=== PATIENT | female | born 1940 | race Caucasian/White ===

== ENCOUNTER 2019-12-12 16:06 | Emergency (ER) | payer MEDICARE, SELFPAY ==
[2019-12-12 16:10] VITALS: BP 169/81; PULSE 76; RESP 24; TEMP 37.4; O2SAT 99
--- NOTE | 2019-12-12 16:21 | ED.NAVMDI ---
HPI - Nausea/Vomiting/Diarrhea General Chief complaint: Nausea/Vomiting/Diarrhea Stated complaint: vomiting/l side pain Time Seen by Provider: 12/12/19 16:20 Source: patient Mode of arrival: ambulatory Limitations: no limitations History of Present Illness HPI Narrative: Baldemar Richard is a 79 yo female with a PMH of CHF ,COPD, HTN, depression, who comes to express care after being referred by PCP to come here for UA/bloodwork for LLQ pain. Pt has had N/V, has been unable to keep fluids down since Monday pain comes and goes and at night keeps her awake. She currently rates pain around 4 out of 10 Patient has CHF and is being treated with Entresto her current ejection fraction is somewhere in the 40s ;at the beginning of in treatment for it with Entresto was down around 32 Related Data Home Medications Medication Instructions Recorded Confirmed Entresto 1 tablet PO BID 02/23/19 12/12/19 carvedilol 12.5 mg PO BID 02/23/19 12/12/19 cholecalciferol (vitamin D3) 25 mcg PO DAILY 02/23/19 12/12/19 spironolactone 25 mg PO DAILY 02/23/19 12/12/19 tolterodine 4 mg capsule,extended 4 mg PO DAILY 12/12/19 12/12/19 release 24 hr Allergies Allergy/AdvReac Type Severity Reaction Status Date / Time latex Allergy Intermediate HIVES Verified 12/12/19 16:13 Penicillins Allergy Unknown Unknown Verified 12/12/19 16:13 Review of Systems Review of Systems: Narrative: CONSTITUTIONAL: Denies fever, chills, sweats. EYES: Denies visual changes, redness, discharge. ENT: Denies rhinorrhea, congestion, sore throat, otalgia. CARDIOVASCULAR: Denies chest pain, palpitations, edema. RESPIRATORY: Denies dyspnea, wheezing, cough GASTROINTESTINAL: Has abdominal pain, has nausea, has vomiting, no diarrhea. GENITOURINARY: Denies dysuria, hematuria, abnormal discharge SKIN: Denies rash or itching. NEUROLOGIC: Denies numbness, or focal weakness. PSYCHIATRIC: Denies anxiety or depression. extremities mild edema PMFSH Past Medical History Medical History Breast cancer With left breast lumpectomy May 2003, with breast cancer recurrence in July 2014 with subsequent bilateral mastectomy and radiation therapy CHF (congestive heart failure) Hiatal hernia Small hiatal hernia Hypertension Knee pain Left bundle branch block Nonischemic cardiomyopathy (~10/2018) Cardiac catheterization (Dr. Cervantes) demonstrated ejection fraction of 30% and large with widely patent coronary arteries Normal colonoscopy Approximately 10 years ago per patient report Osteopenia after menopause DEXA scan October 2017 Surgical History Surgical History H/O bilateral mastectomy History of carpal tunnel release May [address] Ernandez History of cataract surgery Bilateral History of total hysterectomy with bilateral salpingo-oophorectomy (BSO) Due to uterine fibroids Hx of tonsillectomy S/P cubital tunnel release Right July 2015 Dr. Ernandez Family History Family History Mother Diabetes mellitus Hypertension Father Hypertension Social History Social History Social History: Patient lives alone in [facility]. She has been since 2014. She does not have any children and does not have any family members that live in the region. 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 She rarely drinks alcohol. She is a lifelong nonsmoker and does not use illicit substances. Primary care physician is Dr. Araceli Jimenez. Code status: The patient does not have a durable power of senior trial attorney. She states that she would not want to be intubated if she could not breathe. She is okay with cardiac resuscitation and medications. Patient is okay with remaining a full code as she may need surgery. Smoking status: Never smoker Second hand tobacco smoke e
== END 2019-12-12 16:45 | disposition short-term general hospital (02) ==
PROVIDERS: Emergency Provider Nurse Practitioner; PCP Family Medicine
DX: E86.0 Dehydration (principal); R11.14 Bilious vomiting; Z85.3 Personal history of malignant neoplasm of breast; Z90.13 Acquired absence of bilateral breasts and nipples; I11.0 Hypertensive heart disease with heart failure; I50.9 Heart failure, unspecified; M85.80 Other specified disorders of bone density and structure, unspecified site; J44.9 Chronic obstructive pulmonary disease, unspecified
CPT/HCPCS: 81003; 99212; G0463

== ENCOUNTER 2019-12-12 17:06 | Emergency (ER) | payer MEDICARE, SELFPAY ==
--- NOTE | ~2019-12-12 | CT_ITS ---
EXAMINATION: CT abdomen pelvis wo con DATE: 12/12/2019 18:41 INDICATION: Left lower quadrant abdominal pain radiating to the left lower back. Vomiting and diarrhe a. TECHNIQUE: Computed tomography (CT) of the abdomen and pelvis was performed without intravenous contr ast. Automated exposure control and iterative reconstruction technique were employed. The dose-length product was 1207.00 mGy-cm. COMPARISON: 02/22/2019 FINDINGS: Mild bronchiectatic change and atelectasis at the lung bases. Cardiomegaly. Partially visualized ecta tic ascending thoracic aorta measuring at least 4.3 x 4.1 cm. No pericardial or pleural effusion. Sma ll sliding-type hiatal hernia. Cholecystectomy clips at the gallbladder fossa. Liver, spleen, pancrea s, bilateral adrenal glands and right kidney are normal. Approximately 2 cm cyst at the upper pole of the left kidney. No significant interval change in a 1.9 cm macroscopic fat-containing exophytic ang iomyolipoma at the anterior margin of the upper pole of the left kidney. There is new mild left perin ephric stranding with mild left hydroureteronephrosis. There is an unchanged pattern of multiple tiny phleboliths in the vicinity of the distal left ureter but no evident urolithiasis. Bladder is normal . The uterus is not identified and has likely been surgically resected. A short segment of small samir l extends into a small wide mouthed umbilical hernia with no obstruction. The bowels including the ap pendix are otherwise normal. Unchanged mild nonspecific haziness to the small bowel mesentery which i s likely inflammatory in etiology. No pathologically enlarged abdominal or pelvic lymphadenopathy. Mi ld lumbar levoscoliosis. Severe thoracic and lumbar spondylosis. Moderate left and mild right hip ost eoarthritis. IMPRESSION: 1. Mild left hydroureteronephrosis and mild perinephric stranding. No evident urolithiasis or other o bstructing lesion. Correlate with urinalysis. 2. Cardiomegaly and ectatic ascending thoracic aorta measuring at least 4.3 x 4.1 cm. 3. 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 4. Short segment of nonobstructed small bowel extends into a small widemouthed umbilical hernia. Reviewed, dictated and finalized at location A. IMPRESSION: 1. Mild left hydroureteronephrosis and mild perinephric stranding. No evident u rolithiasis or other obstructing lesion. Correlate with urinalysis. 2. Cardiomegaly and ectatic ascending thoracic aorta measuring at least 4.3 x 4 .1 cm. 3. 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 4. Short segment of nonobstructed small bowel extends into a small widemouthed umbilical hernia.
[2019-12-12 17:16] VITALS: BP 167/89; PULSE 87; RESP 17; TEMP 36.3; O2SAT 97
[2019-12-12 17:33] LABS: Basophils Percent Auto 0.3 % (0.2-1.2); Eosinophils Absolute Auto 0.1 K/mm3 (0-0.3); Eosinophils Percent Auto 0.7 % (0-4.4); Hemoglobin 14.6 g/dL (12.0-15.0); Immature Granulocyte Absolute 0.06 K/mm3 (0.00-0.031); Immature Granulocyte Percent A 0.5 % (0-0.5); Lymphocytes Absolute Auto 1.12 K/mm3 (0.9-3.2); Lymphocytes Percent Auto 9.5 % (18.3-44.2); Mean Corpuscular Hemoglobin 31.3 pg (26-34); Mean Corpuscular Volume 92.3 fl (80-100); Mean Platelet Volume 9.8 fl (7.4-10.4); Monocytes Absolute Auto 0.9 K/mm3 (0.1-0.6); Monocytes Percent Auto 7.5 % (2.6-8.5); Neutrophils Absolute Auto 9.6 K/mm3 (1.3-6.7); Neutrophils Percent Auto 81.5 % (45.5-73.1); Platelet Count Result 250 k/mm3 (150-375); Red Blood Count 4.66 M/mm3 (4.2-5.4); Red Cell Distribution Width 12.5 % (11.5-14.5); White Blood Count 11.8 K/mm3 (4.5-10.0)
[2019-12-12 17:48] LABS: Alanine Aminotransferase 12 U/L (4-35); Albumin Level 4.4 g/dL (3.5-5.1); Alkaline Phosphatase 70 U/L (38-126); Anion Gap 10 mmol/L (8-16); Aspartate Amino Transferase 25 U/L (14-36); Blood Urea Nitrogen 20 mg/dL (7-17); Calcium 9.6 mg/dL (8.4-10.2); Carbon Dioxide 25 mmol/L (22-30); Chloride 104 mmol/L (98-107); Estimated CRCL calculation 45 ml/min; Estimated Glomerular Filt Rate 54; Glucose 114 mg/dL (65-105); Lipase 35 U/L (23-300); Potassium 4.4 mmol/L (3.4-5.0); Sodium 139 mmol/L (137-145)
[2019-12-12] MEDS: SODIUM CHLORIDE 0.9% IV 500 ML 999 ML IV CONT (18:07)
[2019-12-12] MEDS: ONDANSETRON INJ 4 MG/2 ML VIAL IV PUSH (18:07)
[2019-12-12] MEDS: MORPHINE SULFATE (*CRX) 2 MG/ML INJ IV PUSH (18:07)
--- NOTE | 2019-12-12 18:09 | ED.ABDPAIN ---
HPI - Abdominal Pain General Chief Complaint: Abdominal Pain Stated Complaint: abd pain Time Seen by Provider: 12/12/19 17:40 Source: patient Mode of arrival: ambulatory Limitations: no limitations History of Present Illness HPI narrative: Baldemar Richard is a 79 yo female with a past medical history of CHF ,COPD, HTN, depression, who presents after being seen in for further evaluation and diagnostic testing. She reports originally going to for after being sent by PCP for UA/bloodwork as well as LLQ pain. Patient reports LLQ pain x 2 days that radiates into back. She also reports N/V, and reports being unable to keep fluids down since Monday. She reports pain is intermittent but is sharp in nature. She currently rates pain 06/20. MD elicited complaint: abdominal pain Related Data Home Medications Medication Instructions Recorded Confirmed Entresto 1 tablet PO BID 02/23/19 12/12/19 carvedilol 12.5 mg PO BID 02/23/19 12/12/19 cholecalciferol (vitamin D3) 25 mcg PO DAILY 02/23/19 12/12/19 spironolactone 25 mg PO DAILY 02/23/19 12/12/19 tolterodine 4 mg capsule,extended 4 mg PO DAILY 12/12/19 12/12/19 release 24 hr Allergies Allergy/AdvReac Type Severity Reaction Status Date / Time latex Allergy Intermediate HIVES Verified 12/12/19 17:20 Penicillins Allergy Unknown Unknown Verified 12/12/19 17:20 amoxicillin Allergy Itching Verified 12/12/19 17:20 Review of Systems Review of Systems: Narrative: CONSTITUTIONAL: Denies fever, chills, or sweats. EYES: Denies visual changes, redness, or discharge. ENT: Denies rhinorrhea, congestion, sore throat, or otalgia. CARDIOVASCULAR: Denies chest pain, palpitations, or edema. RESPIRATORY: Denies cough or dyspnea. GASTROINTESTINAL: Reports LLQ with nausea and vomiting. GENITOURINARY: Denies dysuria or hematuria. Reports decreased urine output. SKIN: Denies rash or itching. MUSCULOSKELETAL: Denies back pain, joint pain, or myalgia. NEUROLOGIC: Denies headache, numbness, dizziness, or weakness. PSYCHIATRIC: Denies anxiety or depression. [facility] Past Medical History Medical History Breast cancer With left breast lumpectomy May 2003, with breast cancer recurrence in July 2014 with subsequent bilateral mastectomy and radiation therapy CHF (congestive heart failure) Hiatal hernia Small hiatal hernia Hypertension Knee pain Left bundle branch block Nonischemic cardiomyopathy (~10/2018) Cardiac catheterization (Dr. Cervantes) demonstrated ejection fraction of 30% and large with widely patent coronary arteries Normal colonoscopy Approximately 10 years ago per patient report Osteopenia after menopause DEXA scan October 2017 Surgical History Surgical History H/O bilateral mastectomy History of carpal tunnel release May [address] Ernandez History of cataract surgery Bilateral History of total hysterectomy with bilateral salpingo-oophorectomy (BSO) Due to uterine fibroids Hx of tonsillectomy S/P cubital tunnel release Right July 2015 Dr. Ernandez Family History Family History Mother Diabetes mellitus Hypertension Father Hypertension Social History Social History Social History: Patient lives alone in [facility]. She has been since 2014. She does not have any children and does not have any family members that live in the region. 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 She rarely drinks alcohol. She is a lifelong nonsmoker and does not use illicit substances. Primary care physician is Dr. Araceli Jimenez. Code status: The patient does not have a durable power of employee benefits attorney. She states that she would not want to be intubated if she could not breathe. She is okay with cardiac resuscitation and medications. Patient is okay with remaining a
[2019-12-12 18:46] VITALS: BP 157/85; PULSE 86; RESP 18; O2SAT 100
[2019-12-12 19:00] LABS: Add Urine Microscopic? YES; Appearance Urine Clear (Clear); Bacteria Urine Trace /hpf; Bilirubin Urine Negative (Negative); Blood Urine 1+ (Negative); Color Urine Straw (Yellow); Glucose Urine UA Negative (Negative); Ketones Urine 1+ mg/dL (Negative); Leukocyte Esterase Ur Negative LEU/UL (Negative); Mucus Urine Rare /lpf; Nitrate Urine Negative (Negative); Protein Urine Negative (Negative); RBC Urine 0-2 /hpf (0-2); Specific Grav Ur 1.009 (1.001-1.035); Squamous Epithelial Cell Urine Rare /hpf (Few); Urobilinogen Urine Negative mg/dL (<2.0); WBC Urine 0-3 /hpf
[2019-12-12 19:11] VITALS: BP 143/80; PULSE 86; RESP 17; O2SAT 98
--- NOTE | 2019-12-12 19:27 | ECG_ITS ---
Measurements Intervals [place] Rate: 74 P: 39 VT: 199 QRS: -52 QRSD: 161 T: 139 QT: 408 QTc: 455 Interpretive Statements SINUS RHYTHM LEFT AXIS DEVIATION LEFT BUNDLE BRANCH BLOCK BASELINE ARTIFACT- I, II, AVR, AVL ABNORMAL ECG Electronically Signed On 12-12-2019 20:32:37 CDT by Edmundo Gimenez D.O.
[2019-12-12] MEDS: BELLADONNA ALK/PHENOB ELIX 10 ML, MAG HYDROX/ALUMINUM HYD/SIMETH 30 ML, LIDOCAINE HCL 2... PO (19:40)
[2019-12-12] MEDS: FAMOTIDINE 20 MG/2 ML VIAL IV PUSH (19:40)
--- NOTE | 2019-12-12 20:27 | PC.NURSE ---
pt reports relief of pain at this time. pt sitting up in stretcher talking with family in NAD. RR even and unlabored, VSS, will continue to monitor pt for baseline status changes.
[2019-12-12 21:29] VITALS: BP 116/95; PULSE 69; RESP 19; O2SAT 100
== END 2019-12-12 21:30 | disposition home or self-care (01) ==
PROVIDERS: Emergency Medicine; Emergency Provider Nurse Practitioner; PCP Family Medicine
DX: E86.0 Dehydration (principal); R11.2 Nausea with vomiting, unspecified; K21.9 Gastro-esophageal reflux disease without esophagitis; I50.9 Heart failure, unspecified; J44.9 Chronic obstructive pulmonary disease, unspecified; Z85.3 Personal history of malignant neoplasm of breast; Z90.13 Acquired absence of bilateral breasts and nipples; I11.0 Hypertensive heart disease with heart failure; M85.80 Other specified disorders of bone density and structure, unspecified site; Z98.42 Cataract extraction status, left eye; Z98.41 Cataract extraction status, right eye; N13.30 Unspecified hydronephrosis; I51.7 Cardiomegaly; D17.71 Benign lipomatous neoplasm of kidney; K42.9 Umbilical hernia without obstruction or gangrene
CPT/HCPCS: 36415; 74176; 80053; 81001; 81003; 83690; 85025; 93005; 96361; 96374; 96375; 99284; A9270; J2270; J2405; J7040

== ENCOUNTER → 2020-02-28 17:58 | Outpatient (CLI) | payer MEDICARE, SELFPAY ==
--- NOTE | ~2020-02-28 | DEXA_ITS ---
Bone Density Report Name: Baldemar Richard Age: 79 Sex: Female Ethnicity: White Date of : 1940 Indication: postmenopausal; screening for osteoporosis; parental hip fracture; prior fracture; hysterectomy; Referring Provider: Tamiko, Elsy Geller Study: Bone densitometry was performed. Exam Date: February 28, 2020 Accession number: [id number] Bone Density: Region BMD T-score Z-score Classification AP Spine (L1, L4) 0.969 -0.6 1.9 Normal Femoral Neck (Left) 0.635 -1.9 0.3 Osteopenia Total Hip (Left) 0.699 -2.0 -0.1 Osteopenia Femoral Neck (Right) 0.595 -2.3 -0.1 Osteopenia Total Hip (Right) 0.676 -2.2 -0.3 Osteopenia Total Hip Mean 0.688 -2.1 -0.2 Osteopenia World Health Organization criteria for BMD impression classify patients as: Normal (T-score at or above -1.0), Osteopenia (T-score between -1.0 and -2.5), or Osteoporosis (T-score at or below -2.5). 10-year Fracture Risk(1): Major Osteoporotic Fracture 34% Hip Fracture 21% Reported Risk Factors: [place] (), Neck BMD=0.595, BMI=41.8, previous fracture, parental fracture (1) FRAX(R) Version 3.08. Fracture probability calculated for an untreated patient. Fracture probability may be lower if the patient has received treatment. Clinical Information Provided by Patient: Has had a low trauma fracture Parent has had a hip fracture Has used the following medications: Calcium Has the following medical conditions: Hysterectomy Patient maximum height was 61 Menopause Age: 44 No regular weight bearing exercise Onset of menses at age 15 Number of children 0 Impression: The patient has low bone mass, based on the Right Femoral Neck T-score. The patient has an estimated ten-year risk of hip fracture of 21% and an estimated ten-year risk of major fracture of 34%, based on the WHO FRAX algorithm. The patient has risk factors, including: parental hip fracture, previous fracture. Discussion: BONE DENSITY IS LOW AT ONE OR MORE SKELETAL SITES. THE PATIENT'S BMD AND CLINICAL RISK FACTORS CONTRIBUTE TO THIS PATIENT'S HIGH RISK OF FRACTURE. This patient's lowest T-score is low at one or more skeletal sites. It meets the World Health Organization's (WHO) criteria for ?low bone mass? (T-score between -1.0 and -2.5). The patient's 10-year risk of hip fracture and 10 year risk of a major osteoporotic fracture as calculated by FRAX exceeds the threshold where pharmacological therapy is recommended by the National Osteoporosis Foundation (NOF). However, all treatment decisions require clinical judgment and consideration of individual patient factors, including patient preferences, comorbidities, previous drug use, risk factors not captured in the FRAX model (e.g., frailty, falls, vitamin D deficiency, increased bone turnover, interval significant decline in helene
== END ==
PROVIDERS: Visit Provider Obstetrics & Gynecology
DX: M81.0 Age-related osteoporosis without current pathological fracture (principal); M85.852 Other specified disorders of bone density and structure, left thigh; M85.851 Other specified disorders of bone density and structure, right thigh
CPT/HCPCS: 77080

== ENCOUNTER 2021-09-20 12:55 | Outpatient (RCR) | payer MEDICARE, SELFPAY ==
--- NOTE | 2021-09-20 14:39 | PTOPEVAL ---
Thank you for referring Baldemar Richard to [facility].? The patient is scheduled to be seen for therapy? 2x/week for 10 visits. Please review, sign, date and return this plan of care JACQUELINE. I agree with and certify that the following plan of care is medically necessary. Referring Physician Date Admitting Provider: Attending Provider: Jose Ramon Epps, DO Referring Provider: *PT Outpatient Evaluation Start: 09/20/21 12:53 Freq: Status: Active Protocol: Document 09/20/21 12:54 [facility] (Rec: 09/20/21 14:11 [facility] [email or web address]) Therapy Assessment Status Assessment Status Assessment Status Evaluation Outpatient Past Medical History Neurological History Hx Neurological Disorders No Significant History Cardiovascular History Hx Cardiac Catheterization Yes: oct 2018 Hx Cardiomyopathy Yes: noneschemic Hx Congestive Heart Failure Yes Hx Hypercholesterolemia Yes Hx Hypertension Yes Hx Other Cardiac Disorders Yes: ejection fraction of 30% Respiratory History Hx Respiratory Disorders No Significant History Gastrointestinal History Hx Cholecystectomy Yes: 02/2019 Hx Hernia Yes: small hiatial Genitourinary History Hx Genitourinary Disorders No Significant History Musculoskeletal History Hx Other Musculoskeletal Disorders Yes: Right tunnel release 2016 , osteopenia Hematological History Hx Hematological Disorders No Significant History Endocrine History Hx Endocrine Disorders No Significant History HEENT History Hx Cataracts Yes Hx Tonsillectomy Yes: as a young adult Hx Eye Surgery Yes: 2014 cataract removal bilaterally Integumentary History Hx Skin Disorders No Significant History Reproductive History Hx Post Menopausal Yes Psychosocial History Hx Anxiety Yes Pain History History of Any Previous or Ongoing No Significant History Instance of Pain Anesthesia History Hx Anesthesia Reactions No Significant History Other History Hx Cancer Yes: breast cancer 2014 Hx Radiation Therapy Yes: 2015 Evaluation Information Problem Diagnosis Bilateral knee osteoarthritis Onset 09/12/2021 Subjective Information Pt reports pain in both of her Query Text:As Reported By Patient/ knees that started getting Family 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 They planned surgery for her knees, but found cardiac issues and could no longer perform surgery. She is po
--- NOTE | 2021-11-08 12:03 | PTOPPROG ---
Evaluation Information Assessment Status Progress Diagnosis Bilateral knee osteoarthritis Subjective Information Pt reports that knee pain still keeps her from doing the things she loves to do. She notices most of her pain along her joint line in both knees, but more in her L. Assessment PT Clinical Summary Pt presents to physical therapy with mild improvements in strength and ROM since her initial evaluation. Pt is still demonstrating an altered gait, impaired static and dynamic balance, and decreased functional strength which makes it harder for her to safely walk and complete ADL's. She will benefit from additional skilled PT to further facilitate symptom relief, improve the aforementiond impairments, and return to functional and recreational activities. Plan of Care PT Services Indicated Yes These treatments will address the objective and functional deficits as defined above. The patient will be advanced safely and appropriately in order for the patient to progress towards his/her prior level of function. Additional exercises will be introduced and as well as a comprehensive home exercise program upon discharge, if needed, ?to ensure carryover of functional gains achieved in the clinic. This treatment plan has been reviewed and agreement upon by the patient.
--- NOTE | 2021-11-08 16:52 | PTOPPROG ---
Evaluation Information Assessment Status Progress Diagnosis Bilateral knee osteoarthritis Subjective Information Pt reports that knee pain still keeps her from doing the things she loves to do. She notices most of her pain along her joint line in both knees, but more in her L. Assessment PT Clinical Summary Pt presents to physical therapy with mild improvements in strength and ROM since her initial evaluation. Pt is still demonstrating an altered gait, impaired static and dynamic balance, and decreased functional strength which makes it harder for her to safely walk and complete ADL's. She will benefit from additional skilled PT to further facilitate symptom relief, improve the aforementiond impairments, and return to functional and recreational activities. Plan of Care PT Services Indicated Yes Treatment Frequency and Remaining 6 visits at 2x week Duration These treatments will address the objective and functional deficits as defined above. The patient will be advanced safely and appropriately in order for the patient to progress towards his/her prior level of function. Additional exercises will be introduced and as well as a comprehensive home exercise program upon discharge, if needed, ?to ensure carryover of functional gains achieved in the clinic. This treatment plan has been reviewed and agreement upon by the patient.
== END 2021-11-29 15:41 | disposition home or self-care (01) ==
LOC: CHSPT 12:55
PROVIDERS: Visit Provider Orthopaedic Surgery
DX: M25.521 Pain in right elbow (principal); M17.0 Bilateral primary osteoarthritis of knee
CPT/HCPCS: 97110; 97112; 97161

== ENCOUNTER 2021-12-10 11:28 | Outpatient (CLI) | payer MEDICARE, SELFPAY ==
[2021-12-10 12:10] LABS: Alanine Aminotransferase 15 U/L (6-35); Albumin Level 4.3 g/dL (3.5-5.1); Alkaline Phosphatase 64 U/L (38-126); Anion Gap 14 mmol/L (8-16); Aspartate Amino Transferase 20 U/L (14-36); Bilirubin,Total 0.7 mg/dL (0.2-1.3); Blood Urea Nitrogen 18 mg/dL (7-17); Calcium 9.1 mg/dL (8.4-10.2); Carbon Dioxide 24 mmol/L (22-30); Chloride 103 mmol/L (98-107); Estimated Glomerular Filt Rate > 60; Glucose 119 mg/dL (65-110); Potassium 4.4 mmol/L (3.4-5.0); Sodium 141 mmol/L (137-145)
[2021-12-10 12:57] LABS: NT Pro B Type Natriuretic Pept 107 pg/mL (5-100)
== END 2021-12-10 11:29 | disposition home or self-care (01) ==
LOC: ANHLAB 11:33
PROVIDERS: PCP Family Medicine; Visit Provider Internal Medicine Cardiovascular Disease
DX: I42.8 Other cardiomyopathies (principal); I50.32 Chronic diastolic (congestive) heart failure; R53.82 Chronic fatigue, unspecified
CPT/HCPCS: 36415; 80053; 83880; 84443

== ENCOUNTER 2023-01-04 12:39 | Outpatient (CLI) | payer MEDICARE, SELFPAY ==
--- NOTE | ~2023-01-04 | XR_ITS ---
EXAM: XR abdomen/kub 1V DATE: 01/04/2023 13:14 HISTORY: W19.XXXA - Unspecified fall, initial encounter . COMPARISON: CT abdomen and pelvis 12/12/2019. FINDINGS: Clear lung bases. Cholecystectomy clips Normal bowel gas pattern. No organomegaly. No abno rmal abdominal calcification. Severe lumbar degenerative disc disease. Moderate left and mild right h ip osteoarthritis. Minimally displaced left seventh and eighth anterolateral rib fractures. IMPRESSION: No radiographic evidence of obstruction or ileus. Minimally displaced left seventh and eighth anterolateral rib fractures. Small left pleural effusion may represent blood in the setting of trauma. Reviewed, dictated and finalized at location K.
[2023-01-04 13:14] LABS: Hematocrit 41.4 % (37.0-47.0); Hemoglobin 13.5 g/dL (12.0-15.0); Mean Corpuscular HGB Conc 32.6 g/dl (32-36); Mean Corpuscular Hemoglobin 30.3 pg (26-34); Mean Platelet Volume 9.5 fl (7.4-10.4); Platelet Count Result 245 k/mm3 (150-375); Red Blood Count 4.45 M/mm3 (4.2-5.4); Red Cell Distribution Width 13.1 % (11.5-14.5); White Blood Count 6.6 K/mm3 (4.5-10.0)
[2023-01-04 13:17] LABS: Alanine Aminotransferase 13 U/L (6-35); Albumin Level 4.2 g/dL (3.5-5.1); Alkaline Phosphatase 62 U/L (38-126); Anion Gap 3 mmol/L (8-16); Aspartate Amino Transferase 20 U/L (14-36); Bilirubin,Total 0.7 mg/dL (0.2-1.3); Blood Urea Nitrogen 17 mg/dL (7-17); Calcium 9.5 mg/dL (8.4-10.2); Carbon Dioxide 28 mmol/L (22-30); Chloride 104 mmol/L (98-107); Estimated Glomerular Filt Rate > 60; Glucose 95 mg/dL (65-110); Potassium 4.8 mmol/L (3.4-5.0); Sodium 135 mmol/L (137-145)
[2023-01-04 13:23] LABS: Hemoglobin A1C 5.4 % (<5.7)
== END 2023-01-04 12:40 | disposition home or self-care (01) ==
LOC: ANHLAB 12:40
PROVIDERS: PCP Family Medicine; Visit Provider Physician Assistant
DX: Z13.1 Encounter for screening for diabetes mellitus (principal); D64.9 Anemia, unspecified; E11.9 Type 2 diabetes mellitus without complications; R10.9 Unspecified abdominal pain
CPT/HCPCS: 36415; 74018; 80053; 83036; 85027

== ENCOUNTER 2023-12-04 10:54 | Outpatient (CLI) | payer MEDICARE, SELFPAY ==
[2023-12-04 11:42] LABS: Hemoglobin A1C 5.7 % (<5.7)
[2023-12-04 11:49] LABS: Alanine Aminotransferase 11 U/L (6-35); Albumin Level 4.2 g/dL (3.5-5.1); Alkaline Phosphatase 57 U/L (38-126); Anion Gap 7 mmol/L (4-12); Aspartate Amino Transferase 19 U/L (14-36); Bilirubin,Total 0.9 mg/dL (0.2-1.3); Blood Urea Nitrogen 18 mg/dL (7-17); Calcium 9.1 mg/dL (8.4-10.2); Carbon Dioxide 27 mmol/L (22-30); Chloride 102 mmol/L (98-107); Cholesterol 160 mg/dL (0-200); Estimated Glomerular Filt Rate > 60; Glucose 110 mg/dL (65-110); HDL Direct 41 mg/dL; Potassium 4.2 mmol/L (3.4-5.0); Sodium 136 mmol/L (137-145); Triglycerides 124 mg/dL (<150)
[2023-12-04 12:01] LABS: LDL Cholesterol Direct 79 mg/dL
== END 2023-12-04 10:55 | disposition home or self-care (01) ==
LOC: ANHLAB 10:57
PROVIDERS: PCP Family Medicine; Visit Provider Student in an Organized Health Care Education/Training Program
DX: R73.03 Prediabetes (principal); E66.01 Morbid (severe) obesity due to excess calories
CPT/HCPCS: 36415; 80053; 80061; 83036

== ENCOUNTER 2023-12-05 21:04 | Emergency (ER) | payer MEDICARE, SELFPAY ==
--- NOTE | ~2023-12-05 | CT_ITS ---
EXAMINATION: CT cervical spine wo con DATE: 12/05/2023 21:48 INDICATION: ground-level fall with head injury TECHNIQUE: Computed tomography (CT) of the cervical spine was performed without intravenous contrast. Automated exposure control and iterative reconstruction technique were employed. The dose-length pro duct was 477.13 mGy-cm. COMPARISON: None FINDINGS: 102 mm anterolisthesis C2 on C3 and C3 and C4. Mild cervicothoracic dextrocurvature. Vertebral body h eights are normal. No fracture. Severe disc height loss at C4-C5 and C6-C7. Moderate disc height loss at C3-C4 and C5-C6. There is mild central canal stenosis resulting from small posterior endplate ost eophytes at each of these levels. There is multilevel moderate to severe cervical and upper thoracic facet osteoarthritis greatest at C3-C4. There is also multilevel moderate to severe cervical uncovert ebral osteoarthritis. There is moderate to severe left-sided and moderate right-sided neural foramina l stenosis at C4-C5 with additional moderate neural from stenosis on the left at C5-C6 and mild neura l from stenosis at majority the remaining cervical levels. Multinodular goiter with intrathoracic ext ension. Visualized upper lungs are clear. IMPRESSION: 1. Severe cervical spondylosis with no acute osseous abnormality. 2. Multinodular goiter with intrathoracic extension. Reviewed, dictated and finalized at location A.
--- NOTE | ~2023-12-05 | CT_ITS ---
EXAMINATION: CT brain wo con, CT facial bones wo con DATE: 12/05/2023 21:48 INDICATION: Head injury post fall TECHNIQUE: 1. Computed tomography (CT) of the head was performed without intravenous contrast. Sagittal and marcello nal reconstructions were performed. The mA was adjusted according to patient size. Iterative reconstr uction technique was employed. The dose-length product was 477.13 mGy-cm. 2. CT of the maxillofacial bones was performed without intravenous contrast. Sagittal coronal reconst ructions were performed. Automated exposure control and iterative reconstruction technique were emplo yed. The dose-length product was 292.97 mGy-cm. COMPARISON: None FINDINGS: Head: No fracture. No acute intracranial hemorrhage, acute infarction or abnormal extra axial fluid collect ion. Ventricles are normal and symmetric. No mass/mass effect. Changes of bilateral intraocular lens replacement. Mastoid air cells and middle ear cavities are clear. Facial bones: No maxillofacial fractures identified. Specifically the nasal bones, zygomatic arches, mandible and w alls of the orbits and paranasal sinuses are intact. Mild S-shaped configuration of the nasal septum which parallels the contours of the turbinates with no evident fracture. Changes of bilateral intraoc ular lens replacement. Orbits are otherwise normal. Mucous retention cyst at the floor of the right m axillary sinus. Unilateral atrophy of the right submandibular gland. Moderate mid to upper cervical s pondylosis. IMPRESSION: 1. No calvarial or maxillofacial fracture or acute intracranial process. Reviewed, dictated and finalized at location A. IMPRESSION: 1. No calvarial or maxillofacial fracture or acute intracranial process.
[2023-12-05 21:08] VITALS: BP 120/81; PULSE 80; RESP 18; TEMP 36.7; O2SAT 98
--- NOTE | 2023-12-05 21:21 | ED.GENADULT ---
HPI - General Adult General Chief complaint: Wound/Laceration Stated complaint: FALL/HEAD LAC Source: patient Mode of arrival: ambulatory Limitations: no limitations History of Present Illness HPI narrative: 83-year-old white female feeding her dog a treat tonight. The dog got excited and knocked her off balance. She fell forward hit her head on the floor causing a small laceration over left eyebrow and small contusion abrasion of right elbow without any pain. Denies any loss of conscious problems walking talking seeing or hearing neck pain weakness paresthesias, problems eating or drinking cough fever sore throat runny nose rash or itching. The bleeding over eyebrow stopped. She denies any other bleeding. She denies any other bruising. She denies any dizziness lightheadedness problems voiding or stooling or any other complaints. Related Data Home Medications Medication Instructions Recorded Confirmed carvedilol 12.5 mg tablet 25 mg PO BID 02/23/19 12/05/23 sacubitril 49 mg-valsartan 51 mg 1 tablet PO BID 02/23/19 12/05/23 tablet (Entresto) calcium carbonate (Calcium 600) 600 mg PO DAILY 04/09/20 12/05/23 cholecalciferol (vitamin D3) 25 50 mcg PO DAILY 04/09/20 12/05/23 mcg (1,000 unit) tablet multivitamin 1 tablet PO DAILY 04/09/20 12/05/23 spironolactone 25 mg tablet 25 mg PO DAILY 07/29/21 12/05/23 vitamin E 200 unit capsule 200 unit PO DAILY 07/29/21 12/05/23 Allergies Allergy/AdvReac Type Severity Reaction Status Date / Time latex Allergy Intermediate HIVES Verified 12/05/23 21:11 amoxicillin Allergy Mild Itching Verified 12/05/23 21:11 Penicillins Allergy Unknown Unknown Verified 12/05/23 21:11 Review of Systems Review of Systems: All systems reviewed & are unremarkable except as noted in HPI and below PMFSH Past Medical History Medical History Acute cholecystitis (02/22/19) Bacteriuria with pyuria Breast cancer With left breast lumpectomy May 2003, with breast cancer recurrence in July 2014 with subsequent bilateral mastectomy and radiation therapy CHF (congestive heart failure) Colon cancer Dr. Newman Encounter for surgical aftercare following surgery on the digestive system Hiatal hernia Small hiatal hernia Hypertension Knee pain Left bundle branch block Nonischemic cardiomyopathy (~10/2018) Cardiac catheterization (Dr. Cervantes) demonstrated ejection fraction of 30% and large with widely patent coronary arteries Osteopenia after menopause DEXA scan October 2017 Sepsis Surgical History Surgical History H/O bilateral mastectomy History of carpal tunnel release May [address] Ernandez History of cataract surgery Bilateral History of total hysterectomy with bilateral salpingo-oophorectomy (BSO) Due to uterine fibroids Hx of tonsillectomy S/P cubital tunnel release Right July 2015 Dr. Ernandez Status post partial resection of colon Family History Family History Mother Diabetes mellitus Hypertension Father Hypertension Social History Social History Social History: Patient lives alone in [facility]. She has been since 2014. 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 She rarely drinks alcohol. She is a lifelong nonsmoker and does not use illicit substances. Code status: The patient does not have a durable power of communication instructor. She states that she would not want to be intubated if she could not breathe. She is okay with cardiac resuscitation and medications. Patient is okay with remaining a full code as she may need surgery. Smoking status: Never smoker Second hand tobacco smoke exposure: No Alcohol intake: current Alcohol use details: The patient has never drink alcohol to excess. She may drink 1 alcoholic beverages a couple time
[2023-12-05] MEDS: TETANUS,DIPHTHERIA,AC PERTUSSIS ADULT 0.5 ML (ADACEL) IM (21:58)
[2023-12-05 23:00] VITALS: BP 118/71; PULSE 65; RESP 18; TEMP 36.7; O2SAT 98
== END 2023-12-05 23:00 | disposition home or self-care (01) ==
PROVIDERS: Emergency Provider Emergency Medicine; PCP Family Medicine
DX: S01.112A Laceration without foreign body of left eyelid and periocular area, initial encounter (principal); S50.311A Abrasion of right elbow, initial encounter; E04.2 Nontoxic multinodular goiter; I11.0 Hypertensive heart disease with heart failure; I50.9 Heart failure, unspecified; Z79.899 Other long term (current) drug therapy; Z23 Encounter for immunization; W18.30XA Fall on same level, unspecified, initial encounter
CPT/HCPCS: 70450; 70486; 72125; 90471; 90715; 99284

== ENCOUNTER 2025-01-28 10:53 | Outpatient (CLI) | payer MEDICARE, SELFPAY ==
--- NOTE | 2025-02-19 07:55 | WPDSLEEPSTUD ---
Sleep Study Date of Study: 01/28/25 Ordering Provider: Julisa Alcala PA-C Interpreting Physician: Shantel Perez DO Sleep Study Type: Split Polysomnogram Height: 1.57 m Weight: 102.965 kg Body Mass Index: 41.5 Neck Circumference (inches): 16 Hubbard: 9 Reason for Sleep Study Daytime hypersomnia Sleep History The patient is an 84-year-old female that had a sleep study ordered by her primary care for evaluation of sleep apnea. The patient rarely awakens from sleep short of breath. She denies awakening at night with heartburn, belching or cough. She denies snoring. She frequently has trouble sleeping when she has a cold. She denies waking up gasping for air throughout the night. She denies having breathing problems at night observed by herself or others. She occasionally sweats excessively at night. She rarely has heart palpitations or irregular heartbeats during the night. She occasionally falls asleep during the day but never while driving. She denies having trouble at school or work due to sleepiness. She occasionally experiences vivid dreamlike scenes upon awakening or falling asleep. She rarely feels afraid of going to sleep. She occasionally has nightmares. She occasionally remembers her dreams. She occasionally has thoughts racing through her mind. She frequently feels sad or depressed. She constantly has anxiety. She occasionally has muscular tension. She denies noticing parts of her body jerk. She rarely kicks during the night. She occasionally has crawling and aching feelings in her legs but rarely has leg pain during the night. She denies awakening with jaw pain in the morning. She is frequently bothered by pain during the day but rarely awakened by pain during the night. She occasionally wakes up feeling stiff in the morning. She frequently wakes up with sore or achy muscles. She frequently wakes up with pain in the neck, spine or other joints. She goes to bed between 11:00 p.m. to midnight. It takes her 2 hours to fall asleep. She does not wake up throughout the night. She wakes up between 8-10 a.m. on weekdays and between 10-11 a.m. on the weekends. She gets 6-7 hours of sleep per night. She does not stay in bed after waking up in the morning. She currently lives alone. She does consume caffeinated beverages within 2 hours of bedtime. She denies reading before falling asleep. She will watch television before falling asleep. She occasionally taking naps in the afternoon or the evening and they are refreshing. She consumes 4 cups of decaffeinated beverage per day. She denies tobacco, alcohol and recreational drug use. FORMERLY [facility] Past Medical History Medical History Colon cancer Dr. Newman CHF (congestive heart failure) Knee pain Encounter for surgical aftercare following surgery on the digestive system Sepsis Bacteriuria with pyuria Hiatal hernia Small hiatal hernia Acute cholecystitis (02/22/19) Left bundle branch block Breast cancer With left breast lumpectomy May 2003, with breast cancer recurrence in July 2014 with subsequent bilateral mastectomy and radiation therapy Osteopenia after menopause DEXA scan October 2017 Nonischemic cardiomyopathy (~10/2018) Cardiac catheterization (Dr. Cervantes) demonstrated ejection fraction of 30% and large with widely patent coronary arteries Hypertension Surgical History Surgical History Status post partial resection of colon History of cataract surgery Bilateral History of total hysterectomy with bilateral salpingo-oophorectomy (BSO) Due to uterine fibroids Hx of tonsillectomy History of carpal tunnel release May [address] Ernandez S/P cubital tunnel release Right July 2015 Dr. Ernandez H/O bilateral mastectomy Family History Family History Mother Diabetes mellitus Hypertension Father Hypertension Social History Social History Social History: Patient lives alone in [facility]. She has been since 2014. 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 She rarely drinks alcohol. She is a lifelong nonsmoker and does not use illicit substances. Code status: The patient does not have a durable power of securities attorney. She states that she would not want to be intubated if she could not breathe. She is okay with cardiac resuscitation and medications. Patient is okay with remaining a full code as she may need surgery. Smoking status: Never smoker Second hand tobacco smoke exposure: No Alcohol intake: current Alcohol use details: The patient has never drink alcohol to excess. She may drink 1 alcoholic beverages a couple times a year. Substance use: never Substance use type: does not use Lack of Transportation: No Lack of Food: Never True Current Housing: I Have Housing Concerned About Future Housing: No Difficulty Paying Gas/Electric Bills: No Difficulty Paying for Meds: No Currently Unemployed: No Education: High School Diploma/GED Difficulty w/ Childcare or Family Care: No Living arrangements: alone Occupation/Education: retired Gender identity (if verbalized by the patient): Female Spiritual care concerns: No Agree to blood products: Yes Medications Home Medications ?Medication ?Instructions ?Recorded ?Confirmed ?Type sacubitril 49 mg-valsartan 51 mg 1 tablet PO BID 02/23/19 12/25/24 History tablet (Entresto) aspirin 81 mg tablet,delayed 81 mg PO DAILY #30 tabs 02/26/19 12/25/24 Rx release (Adult Low Dose Aspirin) calcium carbonate (Calcium 600) 600 mg PO DAILY 04/09/20 12/25/24 History cholecalciferol (vitamin D3) 25 50 mcg PO DAILY 04/09/20 12/25/24 History mcg (1,000 unit) tablet multivitamin 1 tablet PO DAILY 04/09/20 12/25/24 History spironolactone 25 mg tablet 25 mg PO DAILY 07/29/21 12/25/24 History vitamin E 200 unit capsule 200 unit PO DAILY 07/29/21 12/25/24 History vibegron 75 mg tablet (Gemtesa) 75 mg PO DAILY #30 tabs 10/04/22 12/25/24 Rx bupropion HCl 150 mg 24 hr tablet, 150 mg PO QAM #90 tabs 10/14/24 12/25/24 Rx extended release (Wellbutrin XL) metoprolol tartrate 50 mg tablet 50 mg PO BID 10/15/24 12/25/24 History paroxetine HCl 40 mg tablet 40 mg PO DAILY #90 tabs 11/02/24 12/25/24 Rx cholestyramine 4 gram oral powder 4 g PO DAILY #231 grams 12/27/24 Rx (Cholestyramine Light) eszopiclone 1 mg tablet (Lunesta) 1 mg PO QHS #1 tablet 01/27/25 Rx Sleep Procedure A full night split study using the [employer] multi-channel system recorded the standard physiologic parameters including EEG, EOG, submentalis EMG, anterior tibialis EMG, EKG, body position, nasal and oral airflow using nasal pressure sensor and thermistor.? Respiratory parameters of chest and abdominal movements were recorded with Respiratory Inductance Plethysmography belts. Oxygen saturation was recorded by pulse oximetry. Video monitoring was also performed. Sleep stages, periodic limb movements, and EEG arousals were scored in 30 second epochs according to the criteria of the AASM Scoring Manual. The Apnea-Hypopnea Index was calculated using [facility] guidelines for definition of hypopnea with 4% O2 desaturations while scoring respiratory events. Sleep Architecture During the diagnostic portion of the study, the total recording time was 169.4 minutes. The total sleep time was 130.5 minutes. Sleep latency was 21.9 minutes.? REM sleep was not achieved during this portion of the study. Sleep Efficiency was 77.0%. The patient had 12 awakenings for an awakening index of 5.5. Wake after sleep onset time was 17.0 minutes. The patient spent 6.5 minutes, 5.0% of total sleep time in Stage N1. The patient spent 91.0 minutes, 69.7% in Stage N2. The patient spent 33.0 minutes, 25.3% in Stage N3. The patient spent 0.0 minutes, 0.0% in Stage REM sleep. At 01:36:48 AM the patient was placed on PAP treatment and was titrated at pressures ranging from 5 cm H20 up to 13 cm H20. During the treatment portion of the study, the total recording time was 304.2 minutes.? The total sleep time was 279.5 minutes. Sleep latency was 3.0 minutes. REM latency was 199.0 minutes. Sleep Efficiency was 91.9%. Wake after Sleep Onset time was 22.0 minutes. The patient spent 21.0 minutes, 7.5% of total sleep time in Stage N1. The patient spent 181.0 minutes, 64.8% in Stage N2. The patient spent 5.5 minutes, 2.0% in Stage N3. The patient spent 72.0 minutes, 25.8% in Stage REM. Respiratory Analysis During the diagnostic portion of the study, the patient had 30 hypopneas and 4 central apneas for an overall Apnea Hypopnea Index of 15.6 events per hour. The REM Apnea Hypopnea Index was 0. The NREM Apnea Hypopnea Index was 15.6. The patient had a Central Apnea Hypopnea Index of 1.8. There was no evidence of Edgar-Michael Respirations. During the treatment portion of the study, the patient had 16 hypopneas and 7 central apneas for an overall Apnea Hypopnea Index of 4.9 events per hour. The REM Apnea Hypopnea Index was 0. The NREM Apnea Hypopnea Index was 6.7. The patient had a Central Apnea Hypopnea Index of 1.5. There was no evidence of Edgar-Michael Respirations. The patient was started on CPAP 5 cm H2O and was titrated to CPAP 13 cm H2O due to central apneas and hypopneas. The patient was able to fall asleep starting on CPAP 5 cm H2O. The patient was able to achieve REM sleep starting on CPAP 13 cm H2O. The patient was able to achieve a residual AHI less than 5 with both NREM and REM sleep on the final pressure setting. On CPAP 13 cm H2O, the patient spent 71 minutes in NREM and 72 minutes in REM with 1 central apnea and 1 hypopnea, resulting in an AHI of 0.8. The patient had a sleep efficiency of 89.4% on this pressure setting. Arousals During the diagnostic portion of the study, there were a total of 85 arousals for an arousal index of 39.1.? There were 19 respiratory arousals for an index of 8.7. There were 34 periodic limb movement arousals for an index of 15.6.? There were 10 isolated limb movement arousals for an index of 4.6. There were 25 spontaneous arousals for an index of 11.5. During the treatment portion of the study, there were a total of 132 arousals for an index of 28.3.? There were 22 respiratory arousals for an index of 4.7. There were 20 periodic limb movement arousals for an index of 4.3.? There were 27 isolated limb movement arousals for an index of 5.8. There were 64 spontaneous arousals for an index of 13.7. Periodic Limb Movements During the diagnostic portion of the study, the patient had 29 isolated limb movements with an index of 13.3. The patient had 93 periodic limb movements with an index of 42.8, which is elevated (normal < 15). The patient had a total of 122 limb movements with a total limb movement index of 56.1. During the treatment portion of the study, the patient had 56 isolated limb movements with an index of 12.0. The patient had 127 periodic limb movements with an index of 27.3, which is elevated (normal < 15). The patient had a total of 183 limb movements with a total limb movement index of 39.3. Oximetry Data During the diagnostic portion of the study, the patient had an average oxygen saturation of 94.3% in wake with a minimum oxygen saturation of 89% and a maximum oxygen saturation of 97%. The patient had an average oxygen saturation of 90.8% in sleep with a minimum oxygen saturation of 87.0% and a maximum oxygen saturation of 96.0%. The patient had 37 oxygen desaturations resulting in an Oxygen Desaturation Index of 17.0. The patient spent 2.2 minutes, 1.3% of total sleep time with an oxygen saturation less than 88%. During the treatment portion of the study, the patient had an average oxygen saturation of 94.3% in wake with a minimum oxygen saturation of 88.0% and a maximum oxygen saturation of 98.0%. The patient had an average oxygen saturation of 92.7% in sleep with a minimum oxygen saturation of 88.0% and a maximum oxygen saturation of 97.0%. The patient had 53 oxygen desaturations resulting in an Oxygen Desaturation Index of 11.4. The patient spent 0.1 minutes of total sleep time with an oxygen saturation less than 88%. Snoring Profile Mild snoring was present in the baseline portion of the study. The snoring resolved once the patient was titrated to CPAP 13 cm H2O. Cardiac Profile The EKG lead showed normal sinus rhythm with ST depression. Premature beats were present throughout the study. During the diagnostic portion of the study, the average pulse rate was 55.3 bpm.? The minimum pulse rate was 50.0 bpm. The maximum pulse rate was 72.0 bpm. During the treatment portion of the study, the average pulse rate was 52.2 bpm.? The minimum pulse rate was 47.0 bpm. The maximum pulse rate was 68.0 bpm. EEG Profile No signs of seizure activity seen. Assessment and Plan Assessment and Plan (1) BRANDON (obstructive sleep apnea): Code(s): G47.33 - Obstructive sleep apnea (adult) (pediatric) Status: Acute Assessment and Plan: In the baseline portion of the study, the patient had an overall AHI of 15.6 with desaturation down to 87%. This is consistent with moderate sleep apnea. The patient was started on CPAP 5 cm H2O and was titrated to CPAP 13 cm H2O due to central apneas and hypopneas. The patient's sleep apnea resolved on the final pressure setting with a high sleep efficiency. I recommend that the patient be prescribed CPAP 13 cm H2O, size medium Resmed AirTouch F20 full face mask, CPAP filters/tubing and heated humidity. This should be used with all episodes of sleep.? Compliance should be reviewed within 31-90 days of starting therapy for usage greater than 4 hours per night greater than 70% of the nights. The patient should be asked about symptoms such as?excessive daytime sleepiness, quality of sleep, decreased nocturia, increased?mental functioning such as memory, mood, and concentration. Data The data obtained during this sleep study is adequate for interpretation. Certification This sleep study has been reviewed by a board certified sleep medicine physician.
[2025-02-24 16:38] VITALS: BMI 41.5
== END 2025-01-29 07:39 | disposition home or self-care (01) ==
PROVIDERS: PCP Student in an Organized Health Care Education/Training Program; Visit Provider Student in an Organized Health Care Education/Training Program
DX: G47.39 Other sleep apnea (principal); G47.33 Obstructive sleep apnea (adult) (pediatric)
CPT/HCPCS: 95811

== ENCOUNTER 2025-03-02 18:45 | Observation (INO) | payer MEDICARE, SELFPAY ==
[2025-03-02] VITALS (18 sets, daily range): BP systolic 132–160; BP diastolic 81–105; PULSE 80–120; RESP 18–20; TEMP 36.8; O2SAT 95–100; BMI 40.8
--- NOTE | ~2025-03-02 | CT_ITS ---
EXAMINATION: CT brain wo con DATE: 03/02/2025 19:12 INDICATION: Trauma. Right-sided head injury. TECHNIQUE: Computed tomography (CT) of the head was performed without intravenous contrast. The mA was adjusted according to patient size. Iterative reconstruction technique was employed. The dose-length product was 605.33 mGy-cm. COMPARISON: CT head dated 12/05/2023. FINDINGS: No acute intracranial bleed or extra-axial collections are seen. No evidence of acute cranial fracture. Hematoma the scalp is noted in the posterior superior right parietal region. IMPRESSION: 1. No acute intracranial bleed. Hematoma of the scalp on the right side. No cranial fracture. Reviewed, dictated and finalized at location T. ESTATE LOAN OFFICER IMPRESSION: 1. No acute intracranial bleed. Hematoma of the scalp on the right side. No scratch finisher nial fracture.
--- NOTE | ~2025-03-02 | CT_ITS ---
EXAMINATION: CT lumbar spine wo con DATE: 03/02/2025 19:12 INDICATION: Trauma due to fall. Low back pain. TECHNIQUE: Computed tomography (CT) of the lumbar spine was performed without intravenous contrast. Automated exposure control and iterative reconstruction technique were employed. The dose-length product was 1165.06 mGy-cm. COMPARISON: CT abdomen pelvis dated 12/12/2019 FINDINGS: Diffuse osteopenia of bones. Advanced multilevel degenerative disc disease and facet arthropathy of lumbar discs. Fracture of right transverse process of L2 vertebra is noted. Probably acute, avulsion fracture of right transverse process of L2. No vertebral compression is seen. No compromise of bony spinal canal due to trauma. Paravertebral soft tissues do not show acute findings. IMPRESSION: 1. Osteopenic bones. Advanced multilevel degenerative disc changes and facet arthropathy. 2. Likely acute avulsion fracture of right transverse processes of L2 vertebra. No other fractures of lumbar spine are seen. If symptoms are significant and persistent, MRI is indicated. Reviewed, dictated and finalized at location T. IC HEALTH INSPECTOR IMPRESSION: 1. Osteopenic bones. Advanced multilevel degenerative disc changes and facet ar thropathy. 2. Likely acute avulsion fracture of right transverse processes of L2 vertebra. No other fractures of lumbar spine are seen. If symptoms are significant and p ersistent, MRI is indicated.
--- NOTE | 2025-03-02 18:50 | ED.FALL ---
HPI - Fall General Chief Complaint: Fall Stated Complaint: fall Time Seen by Provider: 03/02/25 18:46 History of Present Illness HPI Narrative: 84-year-old white female with history of hypertension, CHF, who is by herself, had a ground level fall at home. She denies any near-syncope or syncope. Does not really know why she fell, but did not have any prodrome, did not lose consciousness, reports she hit her head hard on the floor, but did not lose consciousness, does not have any neck pain or upper back pain, does have low back pain. She denies any injury to her upper extremities, shoulders, lower extremities, or hips. Denies any chest pain, shortness of breath, abdominal pain, nausea or vomiting, no recent illness. Related Data Home Medications ?Medication ?Instructions ?Recorded ?Confirmed ?Last Taken ?Type sacubitril 49 mg-valsartan 51 mg 1 tablet PO BID 02/23/19 03/03/25 02/22/19 History tablet (Entresto) calcium carbonate (Calcium 600) 600 mg PO DAILY 04/09/20 03/03/25 03/02/25 History cholecalciferol (vitamin D3) 25 50 mcg PO DAILY 04/09/20 03/03/25 03/02/25 History mcg (1,000 unit) tablet multivitamin 1 tablet PO DAILY 04/09/20 03/03/25 03/02/25 History spironolactone 25 mg tablet 25 mg PO DAILY 07/29/21 03/03/25 03/02/25 History vitamin E 200 unit capsule 200 unit PO DAILY 07/29/21 03/03/25 03/02/25 History metoprolol tartrate 50 mg tablet 50 mg PO BID 10/15/24 03/03/25 03/02/25 History Allergies Allergy/AdvReac Type Severity Reaction Status Date / Time latex Allergy Intermediate HIVES Verified 03/02/25 23:47 amoxicillin Allergy Mild Itching Verified 03/02/25 23:47 Penicillins Allergy Unknown Unknown Verified 03/02/25 23:47 Review of Systems Review of Systems: ROS is negative except as in HPI PMFSH Past Medical History Medical History Colon cancer Dr. Newman CHF (congestive heart failure) Knee pain Encounter for surgical aftercare following surgery on the digestive system Sepsis Bacteriuria with pyuria Hiatal hernia Small hiatal hernia Acute cholecystitis (02/22/19) Left bundle branch block Breast cancer With left breast lumpectomy May 2003, with breast cancer recurrence in July 2014 with subsequent bilateral mastectomy and radiation therapy Osteopenia after menopause DEXA scan October 2017 Nonischemic cardiomyopathy (~10/2018) Cardiac catheterization (Dr. Cervantes) demonstrated ejection fraction of 30% and large with widely patent coronary arteries Hypertension Surgical History Surgical History Status post partial resection of colon History of cataract surgery Bilateral History of total hysterectomy with bilateral salpingo-oophorectomy (BSO) Due to uterine fibroids Hx of tonsillectomy History of carpal tunnel release May [address] Ernandez S/P cubital tunnel release Right July 2015 Dr. Ernandez H/O bilateral mastectomy Family History Family History Mother Diabetes mellitus Hypertension Father Hypertension Social History Social History Social History: Patient lives alone in [facility]. She has been since 2014. 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 She rarely drinks alcohol. She is a lifelong nonsmoker and does not use illicit substances. Code status: The patient does not have a durable power of family law attorney. She states that she would not want to be intubated if she could not breathe. She is okay with cardiac resuscitation and medications. Patient is okay with remaining a full code as she may need surgery. Smoking status: Never smoker Second hand tobacco smoke exposure: No Alcohol intake: never Alcohol use details: The patient has never drink alcohol to excess. She may drink 1 alcoholic beverages a couple times a year. Substance use: never Substance use type: does not use Lack of Transportation: No Lack of Food: Never True Current Housing: I Have Housing Concerned About Future Housing: No Difficulty Paying Gas/Electric Bills: No Difficulty Paying for Meds: No Currently Unemployed: No Education: High School Diploma/GED Difficulty w/ Childcare or Family Care: No Living arrangements: alone Occupation/Education: retired Gender identity (if verbalized by the patient): Female Spiritual care concerns: No Agree to blood products: Yes Exam Narrative: pleasant, well-appearing, obese but in no acute distress, in no acute distress. Good historian There is a 4 cm diameter elevated contusion to her right superior occipital area without abrasion or laceration present, no deformity or step-off. There is some diffuse tenderness on firm palpation of the lumbar area including both paravertebral musculature and along the lumbar spine without specific point tenderness. Const: General: cooperative, healthy appearing, comfortable, no acute distress, well developed, alert, awake and Physically active Orientation/consciousness: patient oriented x3 HENMT: Head: normal to inspection, normocephalic and atraumatic Ears: hearing grossly normal bilaterally and external ears normal Face/Nose/Sinus: Normal external nose present, Normal nares present, Normal nasal mucous membranes and turbinates present and normal facial exam Face and sinus: normal facial exam Mouth: Yes Normal oral and palatal mucosa present, Yes lip normal, Yes tongue normal, Yes oropharynx normal and Yes moist mucous membranes Teeth and gingiva: dentition normal Throat: posterior oropharynx normal and tonsils normal ( erythematous) Eyes: General: appearance normal, both eyes and all related structures Alignment and Position: alignment normal and position normal Periorbital: periorbital findings normal Eyelids: eyelids normal Conjunctivae: conjunctivae normal Sclera: sclerae normal Cornea: corneas normal Pupils: Equal, round and reactive pupils present EOM: EOMs intact bilaterally Neck: Neck: normal visual inspection, full ROM and no lymphadenopathy Chest: Chest palpation & inspection: normal inspection of the chest Resp: Effort & Inspection: normal respiratory effort, able to speak in complete sentences, no audible wheezes, no respiratory distress and no use of accessory muscles Auscultation: clear to auscultation bilaterally Cardio: Jugular venous distension: no JVD Rate: regular rate Rhythm: regular rhythm GI: Inspection: normal to inspection GI Palp: No abdominal tenderness, No Tenderness to palpation present (GI), No Guarding due to palpation present (GI), No No hepatosplenomegaly present, No Palpable mass present and No Rebound tenderness present Skin: General skin exam: normal color, no rashes or lesions noted, elasticity normal and turgor normal Neuro: General: patient oriented x3, gait normal, tone normal and moves all extremities Cranial nerves: Yes CN's II-XII intact bilaterally, Yes Equal, round and reactive pupils present and Yes Bilaterally intact EOM present Speech: normal speech Motor exam (neuro): 5/5 motor strength present throughout and Normal motor muscle tone present throughout Sensory Exam: normal sensation Extrem: General: normal to inspection, normal exam except as noted and no pedal edema Psych: Appearance: grossly normal and well kempt Mental Status: mental status grossly normal Speech and movement: Normal speech and movement present Affect: normal affect Attitude: cooperative Thought process: Normal thought process present Course Course Emergency Course: Differential diagnosis includes but is not limited to head injury, intracerebral or intracranial bleed, mass, edema, low back strain, low back contusion, low back fracture Will go ahead and get CT of the head and CT of the LS spine CT of the head shows age-related changes but no bleed CT of the lumbar spine shows L1 transverse process fracture, avulsion type Patient was evaluated by our nurses for the ability to independently ambulate, and she is unable to secondary to pain. Will admit for physical therapy and occupational therapy evaluation, social service consult, consideration of resources to keep her at home versus need for retirement rehab stay. Will send CBC, CMP, UA Bridge observation orders have been written Medical decision making complexity and risk was high Vital Signs Vital signs: Vital Signs Temperature 36.8 C 03/02/25 18:48 Pulse Rate 120 H 03/02/25 18:48 Respiratory Rate 18 03/02/25 18:48 Blood Pressure 132/96 H 03/02/25 18:48 Pulse Oximetry 97 03/02/25 18:48 Oxygen Delivery Room Air 03/02/25 18:48 Temperature 36.7 C 03/03/25 00:00 Pulse Rate 88 03/03/25 00:00 Respiratory Rate 16 03/03/25 00:00 Blood Pressure 114/65 03/03/25 00:00 Pulse Oximetry 97 03/03/25 00:00 Oxygen Delivery Room Air 03/03/25 00:00 MDM Differential Diagnosis Differential Diagnosis: See differential under ED course section Imaging Data Radiologist's impression: ITS Impressions Head CT 03/02/25 19:13 IMPRESSION: 1. No acute intracranial bleed. Hematoma of the scalp on the right side. No cranial fracture. Lumbar Spine CT 03/02/25 19:16 IMPRESSION: 1. Osteopenic bones. Advanced multilevel degenerative disc changes and facet arthropathy. 2. Likely acute avulsion fracture of right transverse processes of L2 vertebra. No other fractures of lumbar spine are seen. If symptoms are significant and persistent, MRI is indicated. Discharge Plan Discharge Clinical Impression: Accidental fall Qualifiers: Encounter type: initial encounter Qualified Code(s): W19.XXXA - Unspecified fall, initial encounter Fracture of L1 vertebra Qualifiers: Encounter type: initial encounter Fracture type: closed Fracture morphology: unspecified fracture morphology Qualified Code(s): S32.019A - Unspecified fracture of first lumbar vertebra, initial encounter for closed fracture Contusion of scalp Qualifiers: Encounter type: initial encounter Qualified Code(s): S00.03XA - Contusion of scalp, initial encounter Patient Disposition: Acute Care [facility] Condition: Stable
[2025-03-02] MEDS: HYDROcodone/acetaminophen (*CRX) 5-325 MG TABLET 1 TAB PO (21:00)
--- NOTE | 2025-03-02 21:15 | PC.NURSE ---
This RN and PCT attempted to ambulate patient with walker. Patient was unable to take more than 2 steps without pain shooting thru her back. Patient lives home alone and cannot perform ADLs with this pain.
[2025-03-03] VITALS (7 sets, daily range): BP systolic 114–142; BP diastolic 65–86; PULSE 84–117; RESP 16–18; TEMP 35.6–36.7; O2SAT 94–97
[2025-03-03 06:36] LABS: Platelet Count Result 256 K/mm3 (150-420)
[2025-03-03 06:50] LABS: Estimated CRCL calculation 55 ml/min; Estimated Glomerular Filt Rate > 60
--- OUTSIDE RECORDS SUMMARY | 2025-03-03 08:19 | XMS_ITS | Clinical Summary ---
Author Organization [facility] Address [address] [place] [address] Care Team Providers Care Hospital Laboratory Technician Name Role Phone Lucie Carreno MD Primary Care Provider [phone] See Ashley DO Unavailable [phone] Marina Newman MD Unavailable Toby Tinoco MD Unavailable Allergies Active Allergy Reactions Criticality Noted Date Comments Ampicillin Rash Medium Latex Itching Low 02/23/2019 Penicillins Rash Medium Medications PARoxetine (PAXIL) 40 mg tablet Take 1 tablet (40 mg total) by mouth every morning Active multivitamin capsule Take 1 capsule by mouth daily Active calcium carbonate (CALCIUM 600 ORAL) Take 1,200 mg by mouth daily Active cholecalciferol (VITAMIN D-3) 1,000 unit tablet Take 1 tablet (1,000 Units total) by mouth daily Active aspirin (ADULT LOW DOSE ASPIRIN) 81 mg enteric coated tablet Take 1 tablet (81 mg total) by mouth daily 9 Active tolterodine (DETROL) 2 mg tablet Take 1 tablet (2 mg total) by mouth daily 11 9 Active dicyclomine (BENTYL) 20 mg tablet Take 1 tablet by mouth 4 times daily 120 tablet 2 Active loperamide HCl (IMODIUM A-D ORAL) Take by mouth Active acetaminophen (TYLENOL) 325 mg tablet Take 2 tablets (650 mg total) by mouth every 6 (six) hours as needed Active metroNIDAZOLE (FLAGYL) 500 mg tablet ON MAY 22, TAKE 1 TABLET BY MOUTH AT 1 PM, 2 PM, & 10 PM. 3 Active neomycin (MYCIFRADIN) 500 mg tablet ON MAY 22, TAKE 2 TABS BY MOUTH AT 1 PM, 2 PM, & 10 PM. 3 Active alendronate (FOSAMAX) 35 mg tablet Take 1 tablet (35 mg total) by mouth every [address] (PROTONIX) 40 mg EC tablet Take 1 tablet (40 mg total) by mouth daily 4 Active sacubitriL-valsarta n (Entresto) 49-51 mg tabletIndications:N onischemic cardiomyopathy (HCC) Take 1 tablet by mouth twice daily 180 tablet 2 5 Active Gemtesa 75 mg tablet Take 75 mg by mouth daily 5 Active polycarbophil (FIBERCON) 625 mg tablet Take 1 tablet (625 mg total) by mouth daily Active metoprolol tartrate (LOPRESSOR) 50 mg immediate release tablet Take 1 tablet (50 mg total) by mouth 2 (two) times a day 60 tablet 11 5 09/04/19 26 Active spironolactone (ALDACTONE) 25 mg tabletIndications:N onischemic cardiomyopathy (HCC) Take 1 tablet by mouth once daily 90 tablet 1 5 Active Active Problems Problem Noted Date Diagnosed Date Nonrheumatic aortic valve stenosis 09/26/2022 Malignant neoplasm of ascending colon 04/05/2022 Chronic fatigue 12/10/2021 Morbid (severe) obesity due to excess calories 0 12/10/2021 Body mass index 40.0-44.9, adult ([facility]) 12/10 Chronic heart failure with p reserved ejection fraction (HFpEF) 03/09/2021 Other chest pain 10/19/2018 LBBB (left bundle branch block) 10/19/2018 Nonischemic cardiomyopathy 10/19/2018 Preoperative cardiovascular examination 10/20/19 19 Primary hypertension 10/19/2018 Morbid obesity with BMI of 40.0-44.9, adult 11/2018 History of breast cancer 02/18/2015 Acquired absence of both breasts 02/18/2015 Surgical follow-up care 07/09/2014 Resolved Problems Problem Noted Date Diagnosed Date Resolved Date Chronic HFrEF (heart failure with reduced ejection fraction) ([facility]) 07/01/2020 03/09/2021 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 03/07/2019 07/01/2020 Encounters Date Type Department Care Team Description 12/05/2024 Telephone [facility] Cardiology [address] [place] [address] Caryl Dodd NP Test Results 12/05/2024 Orders Only [facility] Cardiology at [address] [place] [address] Caryl Dodd NP from Last 3 Months Surgical History Surgery Date Site/Laterality Comments HYSTERECTOMY MASTECTOMY Bilateral COLONOSCOPY x4 hx polyps COLON SURGERY 05/13/2022 OTHER SURGICAL HISTORY 08/11/2022 - 09/09/2022 Kidney stent placed at [facility] Medical History Medical History Date Comments Hypertension Hyperlipidemia Cataract Cardiomyopathy Cancer (HCC) left breast Family History Medical History Relation Name Comments Heart disease Father No Known Problems Maternal Grandfather No Known Problems Maternal Grandmother Heart disease Mother No Known Problems Paternal Grandfather No Known Problems Paternal Grandmother Relation Name Status Comments Father (Age 93) Maternal Grandfather Maternal Grandmother Mother (Age 76) Paternal Grandfather Paternal Grandmother Social History Tobacco Use Types Packs/Day Years Used Date Smoking Tobacco: Never Smokeless Tobacco: Never Tobacco Cessation:Counseling Given: Not Answered Alcohol Use Standard Drinks/Week Comments Yes 0 (1 standard drink = 0.6 oz pur e alcohol) rarely AUDIT-C Answer Date Recorded Q1: How often do you have a drink containing alcohol? Never 04/28/2022 Q2: How many drinks containi ng alcohol do you have on a typical day when you are drinking? 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 Not on file Not on file Last Filed Vital Signs Vital Sign Reading Time Taken Comments Blood Pressure 100/64 08/22/2024 1:51 PM CDT Pulse 70 08/22/2024 1:51 PM CDT Temperature 35.8 C (96.4 F) 06/09/2022 9:43 AM CDT Respiratory Rate 17 06/09/2022 9:43 AM CDT Oxygen Saturation 98% 08/22/2024 1:51 PM CDT Inhaled Oxygen Concentration - - Weight 103 kg (227 lb) 08/22/2024 1:51 PM CDT Height 157.5 cm (5' 2) 08/22/2024 1:51 PM CDT Body Mass Index 41.52 08/22/2024 1:51 PM CDT Plan of Treatment Health Maintenance Due Date Last Done Comments Hepatitis B Screening 1958 Well Visit 65+ 07/25/2007 Depression Screening 05/10/2020 05/10/2019 Fall Risk Assessment 03/02/2022 03/02/2021 Influenza Vaccine (#1) 2024 9, 02/16/2018, 12/05/2016, Additional history exists Osteoporosis Screening-Bone Density Scan 05/21/2025 05/22/2023 DTaP/Tdap/Td Vaccine (2 - Td or Tdap) 07/19/2026 07/19/2016, 07/12/2011, 03/13/2000 Pneumococcal vaccine 65+ Completed 018, 03/22/2016, 04/02/2015, Additional history exists Zoster Vaccine Completed 08/28/2017, 10/2017, 12/31/2013 Insurance [facility] Care Teams Hospital Laboratory Technician Relationship Specialty Start Date End Date Lucie Carreno MD PCP - General Family Medicine 03/09/21 See Ashley DO [address] [place] [address] MEDICAL ONCOLOGY, [facility] [place] [address] [place] [address] Medical Oncologist/Warehouse Representative Hematology and Oncology 04/28/22 Marina Newman MD [address] [place] [id number] Surgeon General Surgery 04/28/22 Toby Tinoco MD [address] [place] [id number] Anesthesiology Fellow Gastroenterology 04/28/22
[2025-03-03] MEDS: ENOXAPARIN 40 MG/0.4 ML SYRINGE SUB-Q (09:04)
[2025-03-03] MEDS: CALCIUM CARBONATE (OSCAL) 500 MG TABLET PO (09:06)
[2025-03-03] MEDS: CHOLECALCIFEROL (VITAMIN D3) 25 MCG (1,000 UNITS) TABLET 50 MCG PO (09:06)
[2025-03-03] MEDS: MULTIVITAMINS THERAPEUTIC TAB (*BKC) 1 TABLET PO (09:07)
[2025-03-03] MEDS: HYDROcodone/acetaminophen (*CRX) 5-325 MG TABLET 1 TAB PO (09:07)
[2025-03-03] MEDS: SPIRONOLACTONE 25 MG TABLET PO (09:07)
[2025-03-03] MEDS: ASPIRIN 81 MG ENTERIC TABLET PO (09:07)
[2025-03-03] MEDS: buPROPion HCL XL (24 HR) 150 MG TABCR PO (09:07)
[2025-03-03] MEDS: VITAMIN E 400 UNIT CAPSULE PO (09:08)
[2025-03-03 09:38] LABS: Hematocrit 40.6 % (35.0-42.0); Hemoglobin 13.3 g/dL (11.7-13.8); Mean Corpuscular HGB Conc 32.8 g/dL (32-36); Mean Corpuscular Hemoglobin 30.6 pg (27.0-31.0); Mean Corpuscular Volume 93.5 fL (78.0-102.0); Platelet Count Result 265 K/mm3 (150-420); Red Blood Count 4.34 M/mm3 (4.20-5.40); White Blood Count 7.2 K/mm3 (4.8-10.8)
[2025-03-03 09:45] LABS: Alanine Aminotransferase 18 U/L (6-35); Albumin Level 3.9 g/dL (3.5-5.1); Alkaline Phosphatase 66 U/L (38-126); Anion Gap 6 mmol/L (4-12); Aspartate Amino Transferase 33 U/L (14-36); Bilirubin,Total 0.8 mg/dL (0.2-1.3); Blood Urea Nitrogen 16 mg/dL (7-17); Calcium 9.0 mg/dL (8.4-10.2); Carbon Dioxide 24 mmol/L (22-30); Chloride 109 mmol/L (98-107); Estimated CRCL calculation 54 ml/min; Estimated Glomerular Filt Rate > 60; Glucose 113 mg/dL (65-110); Magnesium 2.1 mg/dL (1.6-2.3); Osmolality Calculated 290 mOsm/kg (285-295); Potassium 4.1 mmol/L (3.4-5.0); Sodium 139 mmol/L (137-145); Total Protein 6.3 g/dL (6.3-8.2)
--- NOTE | 2025-03-03 10:45 | P.HP_ITS ---
H&P: HPI History of Present Illness Date/Time: 03/03/25 10:45 Chief Complaint: mechanical falls Narrative: Patient is 84-year-old female who presented to the emergency department after a mechanical fall at home. Patient reports past medical history of congestive heart failure, nonischemic cardiomyopathy, HTN, and previous colon cancer with resection. patient states while walking she believes she tripped over an item on her immediately had pain to her back denied losing any consciousness or hitting her head upon evaluation in the emergency department lumbar spine showed an acute avulsion fracture of the right transverse process of the L2 vertebrae. patient denied any chest pain, shortness a breath, dizziness, nausea, vomiting, paresthesia, or difficulty with urination or defecation. labs un remarkable and vitals stable. patient was admitted to the medical unit for pain management and evaluation by PT OT they attempted ambulation in the emergency department the patient unable to ambulate due to significant pain. on assessment patient was comfortable while in bed but did have some moderate to severe pain with any movement otherwise no complaints at this time. Review of Systems Review of Systems: All systems reviewed & are unremarkable except as noted in HPI and below PMFSH Past Medical History Medical History Colon cancer Dr. Newman CHF (congestive heart failure) Knee pain Encounter for surgical aftercare following surgery on the digestive system Sepsis Bacteriuria with pyuria Hiatal hernia Small hiatal hernia Acute cholecystitis (02/22/19) Left bundle branch block Breast cancer With left breast lumpectomy May 2003, with breast cancer recurrence in July 2014 with subsequent bilateral mastectomy and radiation therapy Osteopenia after menopause DEXA scan October 2017 Nonischemic cardiomyopathy (~10/2018) Cardiac catheterization (Dr. Cervantes) demonstrated ejection fraction of 30% and large with widely patent coronary arteries Hypertension Surgical History Surgical History Status post partial resection of colon History of cataract surgery Bilateral History of total hysterectomy with bilateral salpingo-oophorectomy (BSO) Due to uterine fibroids Hx of tonsillectomy History of carpal tunnel release May [address] Ernandez S/P cubital tunnel release Right July 2015 Dr. Ernandez H/O bilateral mastectomy Family History Family History Mother Diabetes mellitus Hypertension Father Hypertension Social History Social History Social History: Patient lives alone in [facility]. She has been since 2014. 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 She rarely drinks alcohol. She is a lifelong nonsmoker and does not use illicit substances. Code status: The patient does not have a durable power of tax attorney. She states that she would not want to be intubated if she could not breathe. She is okay with cardiac resuscitation and medications. Patient is okay with remaining a full code as she may need surgery. Smoking status: Never smoker Second hand tobacco smoke exposure: No Alcohol intake: never Alcohol use details: The patient has never drink alcohol to excess. She may drink 1 alcoholic beverages a couple times a year. Substance use: never Substance use type: does not use Lack of Transportation: No Lack of Food: Never True Current Housing: I Have Housing Concerned About Future Housing: No Difficulty Paying Gas/Electric Bills: No Difficulty Paying for Meds: No Currently Unemployed: No Education: High School Diploma/GED Difficulty w/ Childcare or Family Care: No Living arrangements: alone Occupation/Education: retired Gender identity (if verbalized by the patient): Female Spiritual care concerns: No Agree to blood products: Yes Meds Home Medications and Allergies Home Medications ?Medication ?Instructions ?Recorded ?Confirmed ?Type sacubitril 49 mg-valsartan 51 mg 1 tablet PO BID 02/2303/03/25 History tablet (Entresto) aspirin 81 mg tablet,delayed 81 mg PO DAILY #30 tabs 1 04/29/18 03/03/25 Rx release (Adult Low Dose Aspirin) calcium carbonate (Calcium 600) 600 mg PO DAILY 03/03/25 History cholecalciferol (vitamin D3) 25 50 mcg PO DAILY 03/03/25 History mcg (1,000 unit) tablet multivitamin 1 tablet PO DAILY 04/09/20 1 05/04/24 History spironolactone 25 mg tablet 25 mg PO DAILY 07/29/21 History vitamin E 200 unit capsule 200 unit PO DAILY 07/29/21 03/03/25 History vibegron 75 mg tablet (Gemtesa) 75 mg PO DAILY #30 tab s 10/04/22 03/03/25 Rx bupropion HCl 150 mg 24 hr tablet, 150 mg PO QAM #90 t abs 10/14/24 03/03/25 Rx extended release (Wellbutrin XL) metoprolol tartrate 50 mg tablet 50 mg PO BID 10/15/24 03/03/25 History paroxetine HCl 40 mg tablet 40 mg PO DAILY #90 tabs 03/03/25 Rx eszopiclone 1 mg tablet (Lunesta) 1 mg PO QHS #1 table t 01/27/25 03/03/25 Rx Allergies Allergy/AdvReac Type Severity Reaction Status Date / Time latex Allergy Intermediate HIVES Verified 03/02/25 23:47 amoxicillin Allergy Mild Itching Verified 03/02/25 23:47 Penicillins Allergy Unknown Unknown Verified 03/02/25 23:47 Vital Signs Vital Signs - 24 hr 03/02/25 18:48 03/02/25 18:51 03/02/25 19:00 Temperature 98.3 F Pulse Rate 120 H Respiratory Rate 18 Blood Pressure 132/96 H 156/88 H Pulse Oximetry 97 95 97 Oxygen Delivery Room Air 03/02/25 19:01 03/02/25 19:14 03/02/25 19:15 Temperature Pulse Rate Respiratory Rate Blood Pressure 154/86 H 154/83 H Pulse Oximetry 95 97 95 Oxygen Delivery 03/02/25 19:16 03/02/25 19:31 03/02/25 19:35 Temperature Pulse Rate Respiratory Rate Blood Pressure 153/105 H Pulse Oximetry 97 100 Oxygen Delivery 03/02/25 19:45 03/02/25 19:46 03/02/25 20:00 Temperature Pulse Rate Respiratory Rate Blood Pressure 160/89 H 160/81 H Pulse Oximetry 98 96 100 Oxygen Delivery 03/02/25 20:01 03/02/25 20:15 03/02/25 20:16 Temperature Pulse Rate Respiratory Rate Blood Pressure 153/90 H Pulse Oximetry 100 98 98 Oxygen Delivery 03/02/25 20:30 03/02/25 20:31 03/02/25 23:10 Temperature Pulse Rate 80 Respiratory Rate 20 Blood Pressure 154/92 H Pulse Oximetry 96 96 98 Oxygen Delivery Room Air 03/03/25 00:00 03/03/25 00:00 03/03/25 07:40 Temperature 98.0 F 97.4 F L Pulse Rate 88 88 92 Respiratory Rate 16 16 16 Blood Pressure 114/65 136/77 Pulse Oximetry 97 97 95 Oxygen Delivery Room Air Room Air Room Air Exam Const: General: no acute distress and uncomfortable Other: pleasant female uncomfortable with activity HENMT: Mouth: Yes moist mucous membranes Eyes: General: appearance normal, both eyes and all related structures Neck: Neck: supple Resp: Effort & Inspection: normal respiratory effort Auscultation: clear to auscultation bilaterally Cardio: Rate: regular rate Rhythm: regular rhythm GI: GI Palp: Yes Soft to palpation Auscultation: normal bowel sounds Skin: General skin exam: normal color and no rashes or lesions noted Wounds: no wounds Neuro: Speech: normal speech Motor exam (neuro): 5/5 motor strength present throughout Sensory Exam: normal sensation Other: pain with ambulation Extrem: General: normal to inspection Psych: Mental Status: mental status grossly normal Affect: normal affect Results Labs Labs: Short CBC 03/03/25 03/03/25 Range/Units 06:20 06:20 WBC 7.2 (4.8-10.8) K/mm3 Hgb 13.3 (11.7-13.8) g/dL Hct 40.6 (35.0-42.0) % Plt Count 256 265 (150-420) K/mm3 [facility] 03/03/25 03/03/25 06:20 06:20 Sodium 139 Potassium 4.1 Chloride 109 H Carbon Dioxide 24 BUN 16 Creatinine 0.76 0.77 Glucose 113 H Calcium 9.0 Liver Function 03/03/25 Range/Units 06:20 Total Bilirubin 0.8 (0.2-1.3) mg/dL AST 33 (14-36) U/L ALT 18 (6-35) U/L Alkaline Phosphatase 66 (38-126) U/L Albumin 3.9 (3.5-5.1) g/dL Attestation: I personally reviewed all lab results Imaging CT scan - head: Attestation: I personally reviewed this imaging study Radiologist's impression: EXAMINATION: CT brain wo con DATE: 03/02/2025 19:12 INDICATION: Trauma. Right-sided head injury. TECHNIQUE: Computed tomography (CT) of the head was performed without intravenous contrast. The mA was adjusted according to patient size. Iterative reconstruction technique was employed. The dose-length product was 605.33 mGy- cm. COMPARISON: CT head dated 12/05/2023. FINDINGS: No acute intracranial bleed or extra-axial collections are seen. No evidence of acute cranial fracture. Hematoma the scalp is noted in the posterior superior right parietal region. IMPRESSION: 1. No acute intracranial bleed. Hematoma of the scalp on the right side. No cranial fracture. Reviewed, dictated and finalized at location [facility] EXAMINATION: CT lumbar spine wo con DATE: 03/02/2025 19:12 INDICATION: Trauma due to fall. Low back pain. TECHNIQUE: Computed tomography (CT) of the lumbar spine was performed without intravenous contrast. Automated exposure control and iterative reconstruction technique were employed. The dose-length product was 1165.06 mGy-cm. COMPARISON: CT abdomen pelvis dated 12/12/2019 FINDINGS: Diffuse osteopenia of bones. Advanced multilevel degenerative disc disease and facet arthropathy of lumbar discs. Fracture of right transverse process of L2 vertebra is noted. Probably acute, avulsion fracture of right transverse process of L2. No vertebral compression is seen. No compromise of bony spinal canal due to trauma. Paravertebral soft tissues do not show acute findings. IMPRESSION: 1. Osteopenic bones. Advanced multilevel degenerative disc changes and facet arthropathy. 2. Likely acute avulsion fracture of right transverse processes of L2 vertebra. No other fractures of lumbar spine are seen. If symptoms are significant and persistent, MRI is indicated. Reviewed, dictated and finalized at location [facility] Quality VTE Prophylaxis VTE prophylaxis: mechanical ordered and pharmacologic ordered -Patient's previous records reviewed on admission -ER notes reviewed in detail on admission -discussed all findings and current treatment plan with patient/Family/POA -Consultations reviewed for recommendations -Patient's disposition for safe discharge discussed with rehabilitation case coordinator -radiology imaging, EKG and test results I have personally reviewed and interpreted unless otherwise specified Dictation performed by [employer] direct speech recognition software, therefore web analytics developer variants and typographical errors may occur. Assessment and Plan Assessment and plan (1) Closed L2 vertebral fracture: Code(s): S32.029A - Unspecified fracture of second lumbar vertebra, initial encounter for closed fracture Status: Acute Assessment and Plan: mechanical fall resulting in lumbar 2 vertebrae fracture * pain management * PT/OT evaluation * T SL0 brace * bowel regiment * rest, ice * ambulate as tolerated (2) Chronic anxiety: Code(s): F41.9 - Anxiety disorder, unspecified Status: Acute Assessment and Plan: * continue Wellbutrin (3) Nonischemic cardiomyopathy: Onset Date: ~10/2018 Code(s): I42.8 - Other cardiomyopathies Status: Acute Assessment and Plan: patient with history of nonischemic cardiomyopathy was on Entresto but unable to afford * continue patient's metoprolol (4) 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 congestive heart failure: Qualifiers: Heart failure chronicity: chronic Qualified Code(s): I11.0 - Hypertensive heart disease with heart failure; I50.42 - Chronic combined systolic (congestive) and diastolic (congestive) heart failure Code(s): I11.0 - Hypertensive heart disease with heart failure; I50.40 - Unspecified combined systolic (congestive) and diastolic (congestive) heart failure Status: Acute Assessment and Plan: * continue metoprolol, ASA * monitor BP per unit protocol * does not appear to be in exacerbation heart failure * resume spironolactone Plan Code status: Full code per patient DVT prophylaxis: Lovenox PT/OT notes: PT/OT evaluation Disposition: patient continues admission to the medical unit have PT/OT evaluation and pain management L2 acute fracture pending evaluation will determine if patient will need rehab or can return home with home health. Prior Studies I have reviewed the following patient records and this information was taken into consideration when formulating the assessment and plan.: previous labs, previous ER visits and previous hospitalizations Time Spent with Patient Time with patient: 45 - 74 minutes Hospitalist MIPS Advance Care Plan I have confirmed that the patient's Advanced Care Plan is present, code status is documented, or surrogate decision maker is listed in patient medical record.: Yes Medication Reconciliation I have utilized all available resources to obtain, update and review the patients current medications (includes all prescriptions, OTC, herbals, cannabis, and nutritional supplements).: Yes The patient is not eligible for med reconciliation; the patient is in a emergent medical situation where delaying treatment would jeopardize the patients health.: No
[2025-03-03] MEDS: METOPROLOL TARTRATE 50 MG TAB PO ×2 (12:53→20:18)
[2025-03-03] MEDS: traMADol HCL (*CRX) 25 MG TABLET PO (17:10)
--- NOTE | 2025-03-03 18:45 | PC.NURSE ---
ASSUMED CARE. REPORT RECEIVED FROM EDDIE BAL
[2025-03-04] VITALS: BP 119/81; PULSE 117; RESP 18; TEMP 36.4; O2SAT 94
[2025-03-04 05:33] LABS: Hematocrit 39.3 % (35.0-42.0); Hemoglobin 12.8 g/dL (11.7-13.8); Mean Corpuscular HGB Conc 32.6 g/dL (32-36); Mean Corpuscular Hemoglobin 30.6 pg (27.0-31.0); Mean Corpuscular Volume 94.0 fL (78.0-102.0); Platelet Count Result 238 K/mm3 (150-420); Red Blood Count 4.18 M/mm3 (4.20-5.40); White Blood Count 7.0 K/mm3 (4.8-10.8)
[2025-03-04 05:48] LABS: Alanine Aminotransferase 18 U/L (6-35); Albumin Level 3.8 g/dL (3.5-5.1); Alkaline Phosphatase 64 U/L (38-126); Anion Gap 8 mmol/L (4-12); Aspartate Amino Transferase 26 U/L (14-36); Bilirubin,Total 0.7 mg/dL (0.2-1.3); Blood Urea Nitrogen 16 mg/dL (7-17); Calcium 9.1 mg/dL (8.4-10.2); Carbon Dioxide 24 mmol/L (22-30); Chloride 107 mmol/L (98-107); Estimated CRCL calculation 58 ml/min; Estimated Glomerular Filt Rate > 60; Glucose 108 mg/dL (65-110); Magnesium 2.1 mg/dL (1.6-2.3); Osmolality Calculated 290 mOsm/kg (285-295); Potassium 4.0 mmol/L (3.4-5.0); Sodium 139 mmol/L (137-145); Total Protein 6.1 g/dL (6.3-8.2)
[2025-03-04 08:00] VITALS: BP 148/82; PULSE 84; RESP 20; TEMP 36.1; O2SAT 96
--- NOTE | 2025-03-04 08:52 | P.DS_ITS ---
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 She denied loss of consciousness, head strike, chest pain, shortness of breath, dizziness, neurologic symptoms, or bowel/bladder dysfunction. CT lumbar spine demonstrated a likely acute avulsion fracture of the right transverse process of L2 without canal compromise. CT head was negative for acute intracranial injury. Labs remained unremarkable and vital signs were stable throughout hospitalization. Pain was significant with movement, limiting ambulation. She was admitted for pain control and evaluation by physical and occupational therapy. While comfortable at rest, she experienced moderate to severe pain with mobility. No surgical intervention was indicated. She showed gradual improvement and was deemed safe for discharge with assistive devices and home health support. Patient will have TSLO brace delivered outpatient and oral pain medication was prescribed. Patient with no acute complaints at time of discharge. Patient agreed and acknowledge discharge plan. Status at Discharge Functional status at discharge: uses cane/walker Overall status at discharge: patient is progressing back to baseline Time Spent with Patient Time attestation: Total time spent providing and/or coordinating discharge services: Time spent: Greater than 30 minutes Exam Const: General: no acute distress and uncomfortable Other: pleasant female uncomfortable with activity HENMT: Mouth: Yes moist mucous membranes Eyes: General: appearance normal, both eyes and all related structures Neck: Neck: supple Resp: Effort & Inspection: normal respiratory effort Auscultation: clear to auscultation bilaterally Cardio: Rate: regular rate Rhythm: regular rhythm GI: Auscultation: normal bowel sounds Skin: General skin exam: normal color and no rashes or lesions noted Wounds: no wounds Neuro: Speech: normal speech Motor exam (neuro): 5/5 motor strength present throughout Sensory Exam: normal sensation Other: pain with ambulation Extrem: General: normal to inspection Psych: Mental Status: mental status grossly normal Affect: normal affect DS: Data Data Completed and Pending Labs on day of discharge: Labs from last 24 hours 03/04/25 03/03/25 05:16 06:20 WBC 7.0 7.2 RBC 4.18 L 4.34 Hgb 12.8 13.3 Hct 39.3 40.6 MCV 94.0 93.5 MCH 30.6 30.6 MCHC 32.6 32.8 RDW 12.8 12.7 Plt Count 238 265 MPV 9.9 10.3 Sodium 139 139 Potassium 4.0 4.1 Chloride 107 109 H Carbon Dioxide 24 24 Anion Gap 8 6 BUN 16 16 Creatinine 0.72 0.77 Estim Creat Clear Calc 58 54 Estimated GFR > 60 > 60 Glucose 108 113 H Calculated Osmolality 290 290 Calcium 9.1 9.0 Magnesium 2.1 2.1 Total Bilirubin 0.7 0.8 AST 26 33 ALT 18 18 Alkaline Phosphatase 64 66 Total Protein 6.1 L 6.3 Albumin 3.8 3.9 Imaging Radiologist's impression: EXAMINATION: CT lumbar spine wo con DATE: 03/02/2025 19:12 INDICATION: Trauma due to fall. Low back pain. TECHNIQUE: Computed tomography (CT) of the lumbar spine was performed without intravenous contrast. Automated exposure control and iterative reconstruction technique were employed. The dose-length product was 1165.06 mGy-cm. COMPARISON: CT abdomen pelvis dated 12/12/2019 FINDINGS: Diffuse osteopenia of bones. Advanced multilevel degenerative disc disease and facet arthropathy of lumbar discs. Fracture of right transverse process of L2 vertebra is noted. Probably acute, avulsion fracture of right transverse process of L2. No vertebral compression is seen. No compromise of bony spinal canal due to trauma. Paravertebral soft tissues do not show acute findings. IMPRESSION: 1. Osteopenic bones. Advanced multilevel degenerative disc changes and facet arthropathy. 2. Likely acute avulsion fracture of right transverse processes of L2 vertebra. No other fractures of lumbar spine are seen. If symptoms are significant and persistent, MRI is indicated. Discharge Plan Discharge Attending physician on discharge: Ant Obrien Consulting providers: Soumya Albert Discharging Clinician: Soumya Albert Anticipated Discharge Date/Time: 03/04/25 08:57 Patient Disposition: Home with Home Health Service Activity: as tolerated and other - see discharge instructions Diet: heart healthy and low sodium Discharge Instructions: 1). L2 vertebra * Pain medication has been prescribed please take as prescribed * may take acetaminophen or ibuprofen * TSLO brace to be delievered please wear when ambulating for support * continue to use walker with ambulation and assist in unsteady gait * practice fall precautions recommend removing any tripping hazard such as rugs * continue bowel regimen at home while taking narcotics which can cause constipation I also recommend oral hydration How can you care for yourself at home? ? Keep track of any new symptoms or changes in your symptoms. ? Rest until you feel better. ? Be safe with medicines. Take your medicines exactly as prescribed. Call your doctor if you think you are having a problem with your medicine. ? Do not drive after taking a prescription pain medicine. ? Ensure to follow-up with primary care physician as indicated and provide updated medication list provided to you at discharge. When should you call for help? Call 911 anytime you think you may need emergency care. For example, call if: ? You passed out (lost consciousness). Call your doctor now or seek immediate medical care if: ? You have new symptoms like fever, difficulty breathing, Chest pain, vomiting, or rash. ? You have new or different pain. ? You are confused and are having trouble thinking clearly. ? Your symptoms are getting worse. Watch closely for changes in your health, and be sure to contact your doctor if: ? You do not get better as expected. Patient Instructions: Antibiotic Form, Oxycodone/Acetaminophen (By mouth), Tramadol (By mouth), Pain Management (DC), Fall Prevention for Older Adults (DC), Thoracolumbar Fracture (DC), Clamshell Brace (DC) Patient Language: Latvian Stand Alone Forms: General Discharge Information Follow-up/Referrals: Julisa Alcala PA-C [Primary Care Provider, [facility]] - 2 weeks Discharge Medications: New oxycodone-acetaminophen 5-325 mg Tablet 1 tablet PO Q6H PRN (Reason: Pain Rated 7-10) Qty: 20 0RF tramadol 50 mg tablet 50 mg PO Q6H PRN (Reason: pain (scale score 4-6)) Qty: 20 0RF Continued calcium carbonate [Calcium 600] 600 mg calcium (1,500 mg) tablet 600 mg PO DAILY multivitamin Tablet 1 tablet PO DAILY spironolactone 25 mg tablet 25 mg PO DAILY vitamin E 200 unit capsule 200 unit PO DAILY Gemtesa 75 mg tablet 75 mg PO DAILY Qty: 30 0RF metoprolol tartrate 50 mg tablet 50 mg PO BID aspirin [Adult Low Dose Aspirin] 81 mg Tablet,Delayed Release (Dr/Ec) 81 mg PO DAILY Qty: 30 0RF Rx Instructions: RESTART Wednesday, February 27, 2019 cholecalciferol (vitamin D3) 25 mcg (1,000 unit) tablet 50 mcg PO DAILY bupropion HCl [Wellbutrin XL] 150 mg tablet extended release 24 hr 150 mg PO QAM Qty: 90 1RF paroxetine HCl 40 mg tablet 40 mg PO DAILY Qty: 90 3RF eszopiclone [Lunesta] 1 mg tablet 1 mg PO QHS Qty: 1 0RF Discontinued sacubitril-valsartan [Entresto] 49-51 mg tablet 1 tablet PO BID Date of admission: 03/02/25 21:29 Primary Care Provider: Julisa Alcala Admitting Provider: Ant Obrien Attending physician on admission: Ant Obrien Condition: Stable Quality VTE Prophylaxis VTE prophylaxis: mechanical ordered and pharmacologic ordered -Patient's previous records reviewed on admission -ER notes reviewed in detail on admission -discussed all findings and current treatment plan with patient/Family/POA -Consultations reviewed for recommendations -Patient's disposition for safe discharge discussed with caser up -radiology imaging, EKG and test results I have personally reviewed and interpreted unless otherwise specified Dictation performed by [employer] direct speech recognition software, therefore proof tester variants and typographical errors may occur. Hospitalist MIPS Heart Failure (Exclusion) Patient has history of Heart Transplant or Left Ventricular Assistive Device?: No IF YES, STOP HERE Heart Failure (Qualifier) Patient has current or prior documentation of LVEF less than or equal to 40%, or mod/servere depressed LVSF?: Yes IF NO, STOP HERE If Yes, Heart Failure (Qualifier) Patient was prescribed or already taking an Angiotensin-Converting Enzyme (CAMPBELL) Inhibitor, or Antiotensin Receptor [place] (ARB): No Patient was prescribed or already taking bisoprolol, carvedilol, or sustained release metoprolol succinate: Yes If Medications not prescribed/taking Reason patient not prescribed/taking CAMPBELL or ARB: Patient reasons: pt declined or other pt reason
[2025-03-04] MEDS: buPROPion HCL XL (24 HR) 150 MG TABCR PO (09:28)
[2025-03-04] MEDS: CHOLECALCIFEROL (VITAMIN D3) 25 MCG (1,000 UNITS) TABLET 50 MCG PO (09:28)
[2025-03-04] MEDS: CALCIUM CARBONATE (OSCAL) 500 MG TABLET PO (09:28)
[2025-03-04 09:29] VITALS: PULSE 80
[2025-03-04] MEDS: SPIRONOLACTONE 25 MG TABLET PO (09:29)
[2025-03-04] MEDS: METOPROLOL TARTRATE 50 MG TAB PO (09:29)
[2025-03-04] MEDS: VITAMIN E 400 UNIT CAPSULE PO (09:29)
[2025-03-04] MEDS: MULTIVITAMINS THERAPEUTIC TAB (*BKC) 1 TABLET PO (09:29)
[2025-03-04] MEDS: ASPIRIN 81 MG ENTERIC TABLET PO (09:29)
[2025-03-04] MEDS: oxyCODONE/ACETAMINOPHEN (*CRX) 5-325 MG TABLET 1 TABLET PO (12:47)
--- NOTE | 2025-03-04 13:44 | PC.NURSE ---
1200 here. patient ate. dc instructions went over. both voice an understanding. dc to personal auto.
--- NOTE | 2025-03-05 10:18 | PC.NURSE ---
Discharge call back completed, unable to sleep in her bed, too tall, slept in chair, states understood dc instructions, no questions on medications.
== END 2025-03-04 13:00 | disposition home health service (06) ==
LOC: CHSED 19:20 → CHS2ND 22:26
PROVIDERS: Nurse Practitioner Family; Admitting Provider Internal Medicine; Emergency Provider Emergency Medicine; PCP Student in an Organized Health Care Education/Training Program; Visit Provider Internal Medicine
DX: S32.028A Other fracture of second lumbar vertebra, initial encounter for closed fracture (principal); S00.03XA Contusion of scalp, initial encounter; W18.30XA Fall on same level, unspecified, initial encounter; F41.9 Anxiety disorder, unspecified; I11.0 Hypertensive heart disease with heart failure; I50.42 Chronic combined systolic (congestive) and diastolic (congestive) heart failure; I44.7 Left bundle-branch block, unspecified; I42.8 Other cardiomyopathies; M85.89 Other specified disorders of bone density and structure, multiple sites; K44.9 Diaphragmatic hernia without obstruction or gangrene; Z79.82 Long term (current) use of aspirin; Z85.3 Personal history of malignant neoplasm of breast; Z90.13 Acquired absence of bilateral breasts and nipples; Z90.710 Acquired absence of both cervix and uterus; Z90.722 Acquired absence of ovaries, bilateral; Z98.42 Cataract extraction status, left eye; Z98.41 Cataract extraction status, right eye; Z90.49 Acquired absence of other specified parts of digestive tract; Z85.038 Personal history of other malignant neoplasm of large intestine; Z92.3 Personal history of irradiation
CPT/HCPCS: 36415; 70450; 72131; 80053; 82565; 83735; 85027; 85049; 97161; 97165; 97530; 99285; A9270; G0378; J1650